=== PATIENT | female | born 1960 | race Native Hawaiian/Other Pacific Islander ===

== ENCOUNTER 2019-01-28 07:52 | Outpatient (CLI) | payer OTHER | END 2019-01-28 07:53 | disposition home or self-care (01) | LOC: C.LAB 07:52 | DX: E78.2 Mixed hyperlipidemia (principal) ==

== ENCOUNTER 2019-04-05 07:20 | Outpatient (CLI) | payer OTHER | END 2019-04-05 07:21 | disposition home or self-care (01) | LOC: C.USIC 07:21 ==